=== PATIENT | male | born 1965 | race Two or more races ===

== ENCOUNTER → 2017-03-30 | Outpatient (CLI) | payer OTHER ==
--- NOTE | 2017-03-30 11:53 | RAD ---
Indication: Right knee pain. Time of exam left 40 8:00 AM 3 views of the right knee demonstrate normal alignment. The joint spaces are well maintained. The articular surfaces are smooth. No fracture, dislocation or effusion is seen. Impression: No acute bony abnormality is detected.
== END | disposition home or self-care (01) ==
LOC: DXRADRC 11:37
PROVIDERS: ATTEND Nurse Practitioner Family
DX: M25.561 Pain in right knee (principal)
CPT/HCPCS: 73562

== ENCOUNTER → 2017-04-13 | Outpatient (CLI) | payer OTHER ==
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
== END | disposition home or self-care (01) ==
LOC: DXRADRC 15:50
PROVIDERS: ATTEND Nurse Practitioner Family
DX: M46.82 Other specified inflammatory spondylopathies, cervical region (principal); V29.9XXD Motorcycle rider (driver) (passenger) injured in unspecified traffic accident, subsequent encounter
CPT/HCPCS: 72040